=== PATIENT | female | born 1970 | race Caucasian/White ===

== ENCOUNTER 2017-01-10 12:04 | Inpatient (IN) ==
[2017-01-10] MEDS ORDERED: THIAMINE 100 MG, FOLIC ACID INJ 1 MG, MULTI-VIT INFUSION 10 ML in NS 1,000 ML IV ONE (12:23)
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
[2017-01-10] MEDS: SALINE FLUSH 10ml SYRINGE IV PRN ×2 (13:11→13:29)
[2017-01-10] MEDS ORDERED: 1/2 NS 1,000 ML IV SCH (14:45)
[2017-01-10] MEDS ORDERED: CLONIDINE 0.1 MG/24 HR PATCH TD SCH ×2 (15:45→19:00)
[2017-01-10 15:50] VITALS: BMI 44.0
[2017-01-10] MEDS: 1/2 NS 1,000 ML IV SCH (16:07)
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
[2017-01-10] MEDS ORDERED: CITALOPRAM 20 MG TABLET PO ONE (18:06)
[2017-01-10] MEDS: OMEPRAZOLE 20 MG CAPSULE PO SCH (18:49)
[2017-01-10] MEDS: ACETAMINOPHEN 500 MG TABLET PO PRN (18:50)
[2017-01-10] MEDS: OXAZEPAM 30 MG CAPSULE PO SCH (20:12)
[2017-01-11] MEDS: SALINE FLUSH 10ml SYRINGE IV PRN ×3 (00:18→08:24)
[2017-01-11] MEDS: 1/2 NS 1,000 ML IV SCH ×3 (00:18→16:31)
[2017-01-11] MEDS: ONDANSETRON 4 MG/2 ML INJECTION IVP PRN ×2 (00:36→09:18)
[2017-01-11] MEDS: ACETAMINOPHEN 500 MG TABLET PO PRN ×2 (02:54→09:58)
[2017-01-11] MEDS: METOCLOPRAMIDE 10mg/2ml INJECTION IVP PRN (05:06)
[2017-01-11] MEDS: OMEPRAZOLE 20 MG CAPSULE PO SCH ×2 (06:35→16:30)
[2017-01-11] MEDS: NAPROXEN 220 MG TABLET PO PRN ×2 (06:48→20:32)
[2017-01-11] MEDS: OXAZEPAM 30 MG CAPSULE PO SCH ×3 (08:24→20:32)
[2017-01-11] MEDS: CITALOPRAM 20 MG TABLET PO SCH (08:24)
[2017-01-11] MEDS: FOLIC ACID 1 MG TABLET PO SCH (08:24)
--- NOTE | 2017-01-11 10:44 | Progress Note ---
<Mare Ghosh V - Last Filed: 01/11/17 10:39> Subjective: Kirsten is seen today in follow up this morning. She complains of having a "severe " headache that is not be controlled with Tylenol and Aleve. She feels that headache is worse than baseline migraines. She would like to speak Dr Del Rio regarding depression today. Objective Vital signs: Temperature 97.3 F 01/11/17 07:41 Pulse Rate 93 01/11/17 08:00 Respiratory Rate 18 01/11/17 07:41 Blood Pressure 154/93 H 01/11/17 07:41 Pulse Oximetry 94 01/11/17 07:41 Height/Weight/BMI: Height 1.65 m Weight 120.6 kg Body Mass Index 44.0 - Constitutional Present: no acute distress, well nourished, well developed - Routine HEENT Exam Eye: Present: EOMI ENT: Present: mucous membranes moist, dentition normal - Routine Respiratory Exam Present: CTA bilaterally. Absent: wheezes - Routine Cardiovascular Exam Present: RRR, S1, S2. Absent: murmur - Routine Abdominal Exam Present: soft, normoactive bowel sounds, non distended. Absent: tenderness - Routine Extremities Exam Present: full ROM, normal capillary refill - Routine Back/Spine/Pelvis Exam Back/Spine: Present: full ROM - Routine Skin Exam Present: intact, dry, warm - Routine Neurological Exam Present: alert, oriented X3, CN II-XII intact - Routine Lymphatic Exam Lymphatic: Absent: adenopathy - Routine Psychiatric Exam Present: normal affect, cooperative Results - Labs CBC & Chem 7: 01/11/17 04:00 01/11/17 04:00 Assessment and Plan (1) Alcohol intoxication delirium with moderate or severe use disorder Current visit: Yes Status: Acute (2) Hypernatremia Current visit: Yes Status: Acute (3) Dehydration Current visit: Yes Status: Acute (4) Severe depression Current visit: Yes Status: Chronic (5) Homeless single person Current visit: Yes Status: Acute Assessment and Plan: Assessment: 46 yo WF with 1. Acute ETOH intoxication, Risk for W/D sx. 2. Acute on chronic Alcohol dependence, severe 3. Severe depression 4. Hypernatremia 5. Acute dehydration 6. At risk for metabolic acidosis. 7. Hypertension, acute due to ETOH overuse. 8. Chronic BAKER. 9. Tachycardia 01/11/17 Due to acute severe headache- Will obtain CT head to rule out intracranial abnormality. [place] for better pain control Bp remains elevated on clonidine patch. Will add Lisinopril 5 mg daily. Hypernatremia resolved- 143 now. Continue with Celexa daily for antidepressant. Consult placed to Dr. Del Rio for further psychiatric evaluation and treatment. Spoke with CM regarding possible discharge [facility] [place] [facility]. Will re-eval later in the day Sepsis Assessment - Evaluation Sepsis screening result: No Definite Risk Hospital Course Summary Disclaimer: The visit summary below is not to be considered part of the above Progress Note. Hospital Course: 01/10/17 OBS Assessment: 46 yo WF with 1. Acute ETOH intoxication, Risk for W/D sx. 2. Acute on chronic Alcohol dependence, severe 3. Severe depression 4. Hypernatremia 5. Acute dehydration 6. At risk for metabolic acidosis. 7. Hypertension, acute due to ETOH overuse. 8. Chronic BAKER. 9. Tachycardia Plan *Banana bag in ER. Continue aggressive IVF for rehydration. PO Thiamine, Folate. Scheduled serax, clonidine. Check EKG for baseline, start telemetry. If remains tachycardic, could start metoprolol. *Severe depression Start Celexa. Consult PV in AM for screening. I have instructed pt. to notify us immediately if she has any SI that start. She reports understanding. Denies any current or recent past SI/SA. *HTN- clonidine. *BAKER- hx migraines. Likely due to ETOH overuse. Monitor. If persists, could image head. Avoid medication overuse. *Risk for gastritis, GI bleed- Add PPI BID fo now. Repeat labs in AM SCDs. 01/11/17 Due to acute severe headache- Will obtain CT head to rule out intracranial abnormality. [place] for better pain control Bp remains elevated on clonidine patch. Will add Lisinopril 5 mg daily. Hypernatremia resolved- 143 now. Continue with Celexa daily for antidepressant. Consult placed to Dr. Del Rio for further psychiatric evaluation and treatment. Spoke with CM regarding possible [place] [facility] [place] [facility]. Will re-eval later in the day <Ashli Mejia - Last Filed: 01/11/17 19:26> Objective Vital signs: Temperature 98.0 F 01/11/17 15:44 Pulse Rate 73 01/11/17 16:00 Respiratory Rate 16 01/11/17 15:44 Blood Pressure 145/83 H 01/11/17 15:44 Pulse Oximetry 97 01/11/17 15:44 Height/Weight/BMI: Height 1.65 m Weight 120.6 kg Body Mass Index 44.0 Results - Labs CBC & Chem 7: 01/11/17 04:00 01/11/17 04:00 Assessment and Plan (1) Alcohol intoxication delirium with moderate or severe use disorder Current visit: Yes Status: Acute (2) Hypernatremia Current visit: Yes Status: Acute (3) Dehydration Current visit: Yes Status: Acute (4) Severe depression Current visit: Yes Status: Chronic (5) Homeless single person Current visit: Yes Status: Acute Assessment and Plan: 01/11/2017-I reviewed this chart, the patient history, and the 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 We discussed and formulated the assessment and plan as above with the additions below.-Dr. Mejia The patient states that she's feeling a little better this evening. Her headache has improved after Lortab but is still not gone. She states she still has nausea but it is better. She denies confusion or hallucinations. She does admit to feeling very anxious and having severe difficulties with insomnia recently. She asks to take something to help her sleep tonight. Blood pressure is better with clonidine and lisinopril. She did have significant blood pressure elevation previously. She has received 1 mg of Ativan IV 6 since admission for withdrawal/severe anxiety despite being on Serax 30 mg by mouth every 8. On exam the patient is alert and oriented 3. She is tearful. Chest is clear to auscultation. Cardiovascular reveals a regular rate and rhythm. Abdomen is soft and nontender. Extremities are free of edema. Currently she is not tremulous. Skin is warm and dry. Sodium has normalized and is 143. The patient is urinating well. She is drinking fluids well but appetite is still not good. Impression and plan Alcohol withdrawal with elevated blood pressure, tachycardia and severe anxiety- discussed with Dr. Del Rio. We'll continue Serax. We'll decrease Ativan to every 8. She agrees that the patient is still in withdrawal and is not appropriate for dismissal at this time. Will change to inpatient status due to alcohol withdrawal. She will likely need another 1-2 days in the hospital for treatment of withdrawal. We'll see if the patient can go to [facility] [place] and follow-up with alcohol counseling as an outpatient. Regarding insomnia, Dr. Del Rio recommends hydroxyzine. Hypernatremia has resolved. We'll decrease IV fluids to 75 ML's per hour. Discontinue IV fluids tomorrow if eating and drinking well. Regarding headache, this may be secondary to migraine. Will limit narcotics. We'll check an EKG regarding hydroxyzine CT head was obtained regarding severe headache. No acute intracranial process was identified. Greater than 35 minutes of time was spent seeing and evaluating the patient. She is on high risk medication including IV Ativan and being monitored for alcohol withdrawal. Hospital Course Summary Disclaimer: The visit summary below is not to be considered part of the above Progress Note.
[2017-01-11] MEDS: LISINOPRIL 5 MG TABLET PO SCH (10:53)
[2017-01-11] MEDS: HYDROCODONE/APAP 5mg/325mg TABLET PO PRN ×2 (10:53→14:59)
--- NOTE | 2017-01-11 11:00 | CT Scan Report ---
EXAM: CT head/brain wo con DATE: 01/11/2017 12:00 AM ENCOUNTER: Initial INDICATION: severe headache COMPARISON: None available. TECHNIQUE: 5 mm axial tomographic images were obtained of the head without contrast. The current CT scan was performed using radiation dose-reduction techniques. FINDINGS: The elena-white matter junction is normal. No intra or extra-axial mass or hemorrhage is identified. There is no midline shift. Ventricles are normal in size, shape, and morphology. The basilar cisterns are patent. No acute osseous or soft tissue abnormality. The visualized paranasal sinuses are normal. The visualized portions of the orbits and globes are normal. The mastoid air cells are clear. IMPRESSION: No acute intracranial process identified by CT. .
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
[2017-01-12] MEDS: 1/2 NS 1,000 ML IV SCH ×4 (00:07→21:00)
[2017-01-12] MEDS: HYDROCODONE/APAP 5mg/325mg TABLET PO PRN ×3 (02:08→23:05)
[2017-01-12] MEDS: ONDANSETRON 4 MG/2 ML INJECTION IVP PRN ×2 (02:11→08:35)
[2017-01-12] MEDS: SALINE FLUSH 10ml SYRINGE IV PRN ×5 (03:53→18:04)
[2017-01-12] MEDS: OMEPRAZOLE 20 MG CAPSULE PO SCH ×2 (06:17→16:22)
[2017-01-12] MEDS: NAPROXEN 220 MG TABLET PO PRN ×2 (07:29→21:04)
[2017-01-12] MEDS: OXAZEPAM 30 MG CAPSULE PO SCH ×2 (09:11→14:50)
[2017-01-12] MEDS: LISINOPRIL 5 MG TABLET PO SCH (09:11)
[2017-01-12] MEDS: CITALOPRAM 20 MG TABLET PO SCH (09:11)
[2017-01-12] MEDS: FOLIC ACID 1 MG TABLET PO SCH (09:11)
--- NOTE | 2017-01-12 11:02 | Progress Note ---
<Aida De Anda - Last Filed: 01/12/17 10:59> Subjective: Patient is seen today lying in bed. She states that earlier this morning she was very nauseated and had a severe headache. She has since had some "nausea medicine" and Serax and states she feels much better. States her headache is now 6 out of 10. She's had a few crackers and is drinking water. She's had no tremor/shaking. States she saw Dr. Del Rio yesterday and she put her on a medicine that helped her sleep very well last night. She also wants to make sure she continues on her antidepressant when she is dismissed. She is still quite tearful in talking about her home situation. She states her brother is no longer at her mom's house, so if she is unable to go to a homeless snf, she will return to her mother's house temporarily. She also has additional stressor of her son who is currently on methamphetamine. 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 Objective Vital signs: Temperature 97.9 F 01/12/17 07:21 Pulse Rate 73 01/12/17 08:00 Respiratory Rate 18 01/12/17 07:21 Blood Pressure 139/73 01/12/17 07:21 Pulse Oximetry 95 01/12/17 07:21 Height/Weight/BMI: Weight 120.7 kg - Constitutional Present: no acute distress, well nourished, well developed - Routine HEENT Exam Head: Present: normocephalic, atraumatic - Routine Respiratory Exam Present: CTA bilaterally. Absent: wheezes - Routine Cardiovascular Exam Present: RRR. Absent: murmur - Routine Abdominal Exam Present: soft, normoactive bowel sounds, non distended. Absent: tenderness - Routine Extremities Exam Present: no edema, normal capillary refill - Routine Skin Exam Present: dry, warm - Routine Neurological Exam Present: alert, oriented X3 - Routine Lymphatic Exam Lymphatic: Absent: adenopathy - Routine Psychiatric Exam Present: normal affect, normal thought process, cooperative, depressed, anxious Comments: Tearful Results - Labs CBC & Chem 7: 01/12/17 04:39 01/12/17 04:39 Assessment and Plan (1) Alcohol intoxication delirium with moderate or severe use disorder Current visit: Yes Status: Acute (2) Hypernatremia Current visit: Yes Status: Acute (3) Dehydration Current visit: Yes Status: Acute (4) Severe depression Current visit: Yes Status: Chronic (5) Homeless single person Current visit: Yes Status: Acute Assessment and Plan: Assessment Acute ETOH intoxication Acute on chronic Alcohol dependence, severe Severe depression/anxiety Hypernatremia-resolved Acute dehydration-improving Hypertension, acute due to ETOH overuse. Chronic BAKER. Plan Continue Celexa for depression. Patient had good results with hydroxyzine for insomnia. Continue. Case management looking into if she would qualify for [facility] [place]. She continues on Serax 30 mg 3 times a day. Consider tapering. Hypernatremia has resolved. Continue IV fluids at 75 ML's per hour until she is taking in more fluids by mouth. Blood pressures and pulse have been stable. Consider discontinuing clonidine patch. Continue Prinivil for now. Consider telemetry DC. Sepsis Assessment - Evaluation Sepsis screening result: No Definite Risk Hospital Course Summary Disclaimer: The visit summary below is not to be considered part of the above Progress Note. Hospital Course: 01/10/17 OBS Assessment: 46 yo WF with 1. Acute ETOH intoxication, Risk for W/D sx. 2. Acute on chronic Alcohol dependence, severe 3. Severe depression 4. Hypernatremia 5. Acute dehydration 6. At risk for metabolic acidosis. 7. Hypertension, acute due to ETOH overuse. 8. Chronic BAKER. 9. Tachycardia Plan *Banana bag in ER. Continue aggressive IVF for rehydration. PO Thiamine, Folate. Scheduled serax, clonidine. Check EKG for baseline, start telemetry. If remains tachycardic, could start metoprolol. *Severe depression Start Celexa. Consult PV in AM for screening. I have instructed pt. to notify us immediately if she has any SI that start. She reports understanding. Denies any current or recent past SI/SA. *HTN- clonidine. *BAKER- hx migraines. Likely due to ETOH overuse. Monitor. If persists, could image head. Avoid medication overuse. *Risk for gastritis, GI bleed- Add PPI BID fo now. Repeat labs in AM SCDs. 01/11/17 Due to acute severe headache- Will obtain CT head to rule out intracranial abnormality. [place] for better pain control Bp remains elevated on clonidine patch. Will add Lisinopril 5 mg daily. Hypernatremia resolved- 143 now. Continue with Celexa daily for antidepressant. Consult placed to Dr. Del Rio for further psychiatric evaluation and treatment. Spoke with CM regarding possible discharge to homeless snf. Will re-eval later in the day 01/12/17 Continue Celexa for depression. Patient had good results with hydroxyzine for insomnia. Continue. Case management looking into if she would qualify for [facility] [place]. She continues on Serax 30 mg 3 times a day. Consider tapering. Hypernatremia has resolved. Continue IV fluids at 75 ML's per hour until she is taking in more fluids by mouth. Blood pressures and pulse have been stable. Consider discontinuing clonidine patch. Continue Prinivil for now. Consider telemetry DC. <Ashli Mejia - Last Filed: 01/12/17 20:30> Objective Vital signs: Temperature 98.6 F 01/12/17 19:52 Pulse Rate 85 01/12/17 19:52 Respiratory Rate 20 01/12/17 19:52 Blood Pressure 132/83 01/12/17 19:52 Pulse Oximetry 96 01/12/17 19:52 Height/Weight/BMI: Weight 120.7 kg Results - Labs CBC & Chem 7: 01/12/17 04:39 01/12/17 04:39 Assessment and Plan (1) Alcohol intoxication delirium with moderate or severe use disorder Current visit: Yes Status: Acute (2) Hypernatremia Current visit: Yes Status: Acute (3) Dehydration Current visit: Yes Status: Acute (4) Severe depression Current visit: Yes Status: Chronic (5) Homeless single person Current visit: Yes Status: Acute Assessment and Plan: 01/12/2017-I reviewed this chart, the patient history, and the DIABETES EDUCATOR's/PA's documented findings as above. We discussed and formulated the assessment and plan as above with the additions below.-Roberto The patient states she's feeling better today. She still has some headache and some nausea. Nausea is better with antiemetic and she was able to eat some toast and a banana today. She denies any hallucinations. She does state her thinking is slow today. She also states that last night she slept the best she has in several weeks. On exam the patient is alert and oriented 3. She has no tremulousness. Chest is clear to auscultation. Cardiovascular reveals a regular rate and rhythm. Abdomen is soft and nontender. Extremities are free of edema. SCDs are on. Impression/plan Recommend outpatient treatment for alcoholism. The patient is doing better regarding alcohol withdrawal. Will decrease Serax to 15 mg by mouth 3 times a day. Possibly discontinue tomorrow. Continue hydroxyzine for insomnia. Continue clonidine and lisinopril for hypertension. Continue current treatment for headache. Discontinue IV fluids when eating and drinking well. Possible discharge tomorrow. Hospital Course Summary Disclaimer: The visit summary below is not to be considered part of the above Progress Note.
[2017-01-12] MEDS: ACETAMINOPHEN 500 MG TABLET PO PRN (18:04)
[2017-01-12] MEDS: METOCLOPRAMIDE 10mg/2ml INJECTION IVP PRN (18:05)
[2017-01-12] MEDS ORDERED: OXAZEPAM 30 MG CAPSULE PO SCH (20:28)
[2017-01-12] MEDS ORDERED: HydrOXYzine 50 MG TABLET PO SCH (21:00)
[2017-01-13] MEDS: ONDANSETRON 4 MG/2 ML INJECTION IVP PRN (05:14)
[2017-01-13] MEDS: OMEPRAZOLE 20 MG CAPSULE PO SCH ×2 (05:14→06:34)
[2017-01-13] MEDS: HYDROCODONE/APAP 5mg/325mg TABLET PO PRN (05:14)
[2017-01-13] MEDS: CITALOPRAM 20 MG TABLET PO SCH (09:10)
[2017-01-13] MEDS: LISINOPRIL 5 MG TABLET PO SCH (09:10)
[2017-01-13] MEDS: NAPROXEN 220 MG TABLET PO PRN (09:10)
[2017-01-13] MEDS: OXAZEPAM 10 MG CAPSULE PO SCH ×2 (09:10→15:34)
[2017-01-13] MEDS: FOLIC ACID 1 MG TABLET PO SCH (09:10)
[2017-01-13] MEDS ORDERED: LORazepam 0.5 MG TABLET PO ONE (11:08)
--- NOTE | 2017-01-13 12:25 | Discharge Instructions ---
Discharge Plan - Med Rec/Dispo Referrals/Follow Up: Abhinav Swann II, MD [Physician] - (Jan 19 at 2:45 at [facility] [place] [facility]) Javier Instructions: Abuse of Alcohol (GEN) Additional Instructions: Out patient therapy appointment at [facility] (# ); (appointment with Estela Menjivar as already scheduled for 01/19/17.) It is very important that you keep your appointment with Dr Swann as he will be the one who will refill your prescriptions when you run out. Prescriptions: New HydrOXYzine [Atarax] 50 mg PO HS #30 tab Oxazepam [Serax] 10 mg PO Q8H #20 cap Citalopram [Celexa] 20 mg PO DAILY #30 tab Lisinopril [Prinivil] 5 mg PO DAILY #30 tab Continue Naproxen Sodium [Aleve] 440 mg PO BID PRN PRN Reason: Pain Ibuprofen 800 mg PO BID Discontinued Acetaminophen [Tylenol] 1,000 mg PO Q6H PRN PRN Reason: Pain Discharge Instructions/Outpatient Orders: Final Provider Discharge Instructions Location: Determined By Patient - Disposition 01 Discharged Home, Self-Care Addendum entered and electronically signed by Ashli Mejia MD 01/13/17 14:22:
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
[2017-01-13] MEDS: ACETAMINOPHEN 500 MG TABLET PO PRN (14:30)
[2017-01-13 15:17] VITALS: BP 136/78; PULSE 69; RESP 16; TEMP 99; O2SAT 96
[2017-01-17] MEDS ORDERED: CLONIDINE PATCH REMOVAL TD SCH (19:00)
== END 2017-01-13 17:36 | disposition home or self-care (01) | DRG 897 ==
LOC: MED 12:04 → ED 12:04 → MED 15:35
PROVIDERS: ADMIT Hospitalist; ATTEND Internal Medicine